=== PATIENT | male | born 1960 | race Hispanic/Latino ===

== ENCOUNTER → 2019-08-17 | Outpatient (CLI) | payer BC ==
--- NOTE | 2019-08-17 10:10 | Diagnostic Imaging Report ---
HISTORY: ^[id number] ^[id number] ^INDURATION PENIS PLASTICA COMPARISON: None. TECHNIQUE: Grayscale and color spectral Doppler ultrasound of the scrotum and testicles. FINDINGS: Right testis: 4.2 x 2.4 x 2.5 cm. Normal echotexture without focal lesions. Left testis: 3.8 x 2.1 x 3.0 cm. Normal echotexture without focal lesions. Vascular: Normal symmetric arterial waveforms detected in both testes. No varicocele. Hydrocele: Small left anechoic. Epididymis: Anechoic cyst, measuring 1.3 cm on the right and 0.3 cm on the left. Scrotum: No hydrocele. Penis: Unremarkable IMPRESSION : 1. Limited evaluation due to the lack of pharmacologically-induced erection. No specific penile calcifications or echogenic plaques identified. 2. Small left hydrocele. 3. Small epididymal cysts. Signed by: Paresh Fernandez MD on 08/17/2019 10:06 AM
== END ==
LOC: US 07:27
PROVIDERS: ATTEND Urology
DX: N48.6 Induration penis plastica (principal)
CPT/HCPCS: 76870; 93976

== ENCOUNTER → 2020-01-31 | Outpatient (CLI) | payer BC ==
--- NOTE | 2020-01-31 16:21 | Diagnostic Imaging Report ---
Exam: Testicular ultrasound. Clinical History: Phimosis, testicular hypofunction Comparison: Testicular ultrasound of 08/17/2019 Findings: Sonographic evaluation of the testicles. Both testes are normal in echogenicity and size without intratesticular mass. Normal symmetric bilateral blood flow without evidence of testicular torsion. Right: The right testicle measures 3.5 x 1.6 x 2.7 cm and appears unremarkable. The right epididymis measures 1.6 x 1.3 x 1.5 cm and is associated with a 1.5 cm spermatocele. No hydrocele or varicocele. Left: The left testicle measures 3.3 x 1.5 x 2.4 cm and appears unremarkable. The left epididymis measures 1.0 x 1.0 x 0.9 cm. No hydrocele or varicocele. Impression: No testicular torsion or testicular mass. Right spermatocele. Signed by: Gianna Quiroz MD on 01/31/2020 4:18 PM
== END ==
LOC: US 13:10
PROVIDERS: ATTEND Urology
DX: N47.1 Phimosis (principal); E29.1 Testicular hypofunction
CPT/HCPCS: 76870; 93976